=== PATIENT | female | born 1960 | race Caucasian/White ===

== ENCOUNTER 2024-09-01 15:58 | Emergency (ER) | payer MEDICARE, MEDICAID ==
[~2024-09-01] VITALS: Ht 165.1 cm; Wt 54.3 kg
[2024-09-01 16:35] LABS: BASOPHILS # (AUTO) 0.1 X10'3 (0-0.2); BASOPHILS % (AUTO) 0.9 % (0-1); EOSINOPHILS # (AUTO) 0.3 X10'3 (0-0.9); EOSINOPHILS % (AUTO) 3.2 % (0-6); HEMATOCRIT 42.9 % (35.0-45.0); HEMOGLOBIN 14.6 g/dl (12.0-16.0); LYMPHOCYTES # (AUTO) 3.3 X10'3 (1.1-4.8); LYMPHOCYTES % (AUTO) 33.6 % (21-51); MEAN CORPUSCULAR HEMOGLOBIN 29.6 PG (27.0-31.0); MEAN CORPUSCULAR HGB CONC 34.1 g/dL (33.0-36.5); MEAN CORPUSCULAR VOLUME 86.7 FL (78-98); MEAN PLATELET VOLUME 8.4 FL (7.4-10.4); MONOCYTES # (AUTO) 0.6 X10'3 (0-0.9); MONOCYTES % (AUTO) 6.2 % (2-12); NEUTROPHILS # (AUTO) 5.6 X10'3 (1.8-7.7); NEUTROPHILS % (AUTO) 56.1 % (42-75); PLATELET COUNT 250 X10'3 (140-440); RED BLOOD COUNT 4.94 X10'6 (4.20-5.60); RED CELL DISTRIBUTION WIDTH 13.7 % (11.5-14.5); WHITE BLOOD COUNT 9.9 X10'3 (4.5-11.0)
--- NOTE | 2024-09-01 16:35 | ELECTROCARDIOGRAPH REPORT ---
[facility] Test Date: 2024-09-01 Test Time: 16:33:32 Pat Name: SAMANTA EDGE Department: EMERGENCY ROOM Room: Gender: F Turbine Technician: ROXANA : 1960 Requested By: KYLE PHILLIPS Order Number: [id number] Reading MD: Measurements Intervals [place] Rate: 68 P: 71 CO: 151 QRS: 48 QRSD: 99 T: 61 QT: 400 QTc: 426 Interpretive Statements Sinus rhythm Probable left atrial enlargement Anteroseptal infarct, age indeterminate Please click the below link to view image of tracing.
[2024-09-01 16:41] LABS: ALANINE AMINOTRANSFERASE 18 U/L (12-78); ALBUMIN 4.1 G/DL (3.4-5.0); ALBUMIN/GLOBULIN RATIO 1.5 (1.1-1.5); ALKALINE PHOSPHATASE 85 IU/L (46-116); ANION GAP 5 (8-16); ASPARTATE AMINO TRANSFERASE 12 U/L (10-37); BILIRUBIN,TOTAL 0.3 MG/DL (0.1-1.0); BLOOD UREA NITROGEN 13 MG/DL (7-18); CALCIUM 9.1 MG/DL (8.5-10.1); CHLORIDE 106 MMOL/L (99-107); CREATININE 0.59 MG/DL (0.40-0.90); GLUCOSE 87 MG/DL (70-104); SODIUM 143 MMOL/L (135-145); TOTAL CARBON DIOXIDE 32.4 MMOL/L (24-32); TOTAL PROTEIN 6.8 G/DL (6.4-8.2); eCRCL 85 ML/MIN; eGFR > 90 ML/MIN
[2024-09-01 16:47] LABS: PRO BRAIN NATRIURETIC PEPTIDE 45 PG/ML (0-125)
--- NOTE | 2024-09-01 16:51 | RADIOLOGY REPORT ---
CHEST RADIOGRAPH Indication: CP Technique: Single frontal view of the chest was obtained COMPARISON: None FINDINGS: Lines and Tubes: None Lungs: Clear Pleura: No effusion. No pneumothorax. Cardiomediastinal contours: Unremarkable Bones: Unremarkable IMPRESSION: No acute disease.
--- NOTE | 2024-09-01 21:18 | Physician Documentation ---
History of Present Illness ~ Chief Complaint: Chest Wall Pain Stated Complaint: CP Time Seen by MD: 20:36 OK to notify your PCP?: Yes Primary Medical Doctor: GAYLA Source: patient Mode of Arrival: EMS Exam Limitations: no limitations MACKENZIE Lawrence is a 63-year-old female who came in by ambulance today for bilateral chest wall pain for the past week. Today she notes that the pain was localized, worse on the left chest wall which the pain was relieved when she held pressure against it. She describes his pain as a dull knife sensation. She mentions that she took 800 mg of ibuprofen earlier today and that did help relieve some of the pain. She reports having increased stress in her life. She has a history of tardive dyskinesia. The ambulance provided her with aspirin 324 mg. She denies any shortness of breath, palpitations or tachycardia. Tetanus within 5 Years?: No Allergies: Coded Allergies: codeine (Verified Allergy, Intermediate, 09/01/24) bupropion HCl (Verified Allergy, Unknown, 09/01/24) Active Prescriptions See Medication Reconciliation Form. Medication Reconciliation Scheduled Lidocaine (Lidoderm), 1 PATCH TOP DAILY Past Medical History Past Surgical History: no surgical history Review of Systems All Other Systems at this time: Reviewed and Negative Physical Exam Vital Signs: RN Vital Signs have been reviewed: Yes, Heart Rate: 62, Respiratory Rate: 14, BP: 118/71, Pulse Oximetry: 95, Weight: 54.300 Pulse Oximetry Reflects: adequate oxygenation Physical Exam General: Well developed, well nourished, no acute distress. HEENT: Atraumatic, normal conjunctiva, moist mucous membranes. Neck: Full range of motion, supple. Respiratory: Lungs clear to auscultation, no respiratory distress. Chest: No accessory muscle use. Tender to palpation of right chest wall, pain relieved with palpation of left chest wall. Cardiovascular: Regular rate and rhythm. S1 and S2 normal. Gastrointestinal: Soft, nontender, nondistended. Bowels sounds present. Extremities: Normal range of motion, nontender, normal capillary refill, no deformity. Back: No CVA tenderness. Neurologic: Oriented x4. Psychiatric: Normal mood and affect. Skin: Normal color, warm and dry. No edema, cyanosis, or ecchymosis. Progress Results/Orders Reviewed/noted all lab results: Yes Results/Orders Vital Signs 09/01/24 09/01/24 09/01/24 09/01/24 16:02 18:50 20:39 21:26 Temp 98.6 Pulse 74 62 87 Resp 18 14 14 16 B/P (MAP) 120/86 118/71 (87) 120/70 Pulse Ox 98 95 99 Laboratory Tests Test 09/01/24 16:17 09/01/24 18:31 White Blood Count 9.9 Red Blood Count 4.94 Hemoglobin 14.6 Hematocrit 42.9 Mean Corpuscular Volume 86.7 Mean Corpuscular Hemoglobin 29.6 Mean Corpuscular Hemoglobin Concent 34.1 Red Cell Distribution Width 13.7 Platelet Count 250 Mean Platelet Volume 8.4 Neutrophils (%) (Auto) 56.1 Lymphocytes (%) (Auto) 33.6 Monocytes (%) (Auto) 6.2 Eosinophils (%) (Auto) 3.2 Basophils (%) (Auto) 0.9 Neutrophils # (Auto) 5.6 Lymphocytes # (Auto) 3.3 Monocytes # (Auto) 0.6 Eosinophils # (Auto) 0.3 Basophils # (Auto) 0.1 CBC Comment Sodium Level 143 Potassium Level 4.0 Chloride Level 106 Carbon Dioxide Level 32.4 H Anion Gap 5 L Blood Urea Nitrogen 13 Creatinine 0.59 Estimated GFR/1.73 m2 > 90 BUN/Creatinine Ratio 22.0 H Glucose Level 87 Calcium Level 9.1 Total Bilirubin 0.3 Aspartate Amino Transf (AST/SGOT) 12 Alanine Aminotransferase (ALT/SGPT) 18 Alkaline Phosphatase 85 Troponin I High Sensitivity 24 24 Pro-B-Type Natriuretic Peptide 45 Total Protein 6.8 Albumin 4.1 Globulin 2.7 Albumin/Globulin Ratio 1.5 Chemistry Comments Troponin I High Sens Percent Delta 0 Troponin I Hi Sens Absolute Change 0 EKG/XRAY/CT/US/VASC/MRI EKG : Additional Comment Electrocardiogram: as interpreted by me; normal sinus rhythm, no axis deviation, no acute ischemia, normal intervals, no pre-excitation pattern. Rate: 68 bpm. Chest X-Ray : Views: 1 VIEW Additional Comments Chest x-ray: as interpreted by me; no large effusion, no large infiltrate, normal mediastinum. Heart Score: Heart Score Response (Comments) Value History Slightly Suspicious 0 EKG Normal 0 Age 45-64 1 Risk Factors No known risk factors 0 Troponin Normal limit 0 Total 1 Medical Decision Making Findings Melinda is a 63-year-old female presenting with musculoskeletal chest wall pain for the past week, localized to the left side today. On physical exam, the pain is relieved by palpation of the left chest and exacerbated by palpation of the right chest. It was relieved with ibuprofen at home. She did receive 324 mg of aspirin by EMS prior to arrival. Her labs are reassuring and her troponins are negative. Her chest x-ray is negative for any acute fracture or cardiopulmonary abnormality. Her EKG was sinus rhythm with no signs of ST-elevation or axis deviation. She has been discharged home with lidocaine patches to apply to the affected area. She has been instructed to return to her primary care provider in the next 3 days. She can use Tylenol and/or ibuprofen for pain relief at home. She should return back here for any new or worsening symptoms and she agrees with this plan. Differential Dx:Considerations: Include: Chest wall contusion, Flail chest, Myocardial contusion, Pneumothorax, Pulmonary contusion, Rib fracture Additional Comment ACS, DC Departure Disposition: 01 HOME / SELF CARE / HOMELESS Impression: Primary Impression: Chest wall pain Additional Impression: Costochondritis Condition: Stable Discharge Instructions: Chest Wall Pain Additional Instructions: Use the lidocaine patches to the affected area. You can use Tylenol and/or ibuprofen for pain relief at home. Please return back here for any new or worsening symptoms. Primary care provider in the next 3 days. Your cardiac workup was reassuring that this pain is due to the musculoskeletal system. Referrals: NO PRIMARY CARE PROVIDER (PCP) Prescriptions Lidocaine (Lidoderm) 5 % Adh..patch 1 PATCH TOP DAILY for 30 Days, #10 PATCH 0 Refills may wear up to 12 hours Prov: ANALI AGUERO 09/01/24 Education Educated: Patient Educated regarding: diagnosis, treatment, prognosis, need for follow up Signature Scribe Signature: . Attestation: Scribed for Anali Aguero by Anali Tuttle NP . 09/02/24 00:19 ANALI AGUERO September 01, 2024 21:18
[2024-09-01] MEDS ORDERED: LIDO700A32 TOP (21:22)
[2024-09-01 21:26] VITALS: BP 120/70; PULSE 87; RESP 16; TEMP 98.6; O2SAT 99
== END 2024-09-01 21:28 | disposition home or self-care (01) ==
LOC: ER 15:58
DX: R07.89 Other chest pain (principal); M94.0 Chondrocostal junction syndrome [Tietze]; Z88.5 Allergy status to narcotic agent; Z88.8 Allergy status to other drugs, medicaments and biological substances; Z79.899 Other long term (current) drug therapy
CPT/HCPCS: 36415; 71045; 80053; 83880; 84484; 85025; 93005; 99285